=== PATIENT | male | born 1945 | race Caucasian/White ===

== ENCOUNTER → 2016-07-22 | Outpatient (CLI) | payer MEDICARE ==
[2016-07-22 13:48] LABS: PROTHROMBIN TIME 34.2 SEC (11.4-15.4)
== END ==
LOC: OD 12:31
PROVIDERS: ATTEND Internal Medicine
DX: I48.91 Unspecified atrial fibrillation (principal)
CPT/HCPCS: 36415; 85610

== ENCOUNTER → 2016-08-11 | Outpatient (CLI) | payer MEDICARE ==
[2016-08-11 12:11] LABS: PROTHROMBIN TIME 22.3 SEC (11.4-15.4)
== END ==
LOC: OD 11:35
PROVIDERS: ATTEND Internal Medicine
DX: I48.91 Unspecified atrial fibrillation (principal)
CPT/HCPCS: 36415; 85610

== ENCOUNTER → 2016-08-26 | Outpatient (CLI) | payer MEDICARE ==
[2016-08-26 14:07] LABS: PROTHROMBIN TIME 55.4 SEC (11.4-15.4)
== END ==
LOC: OD 11:01
PROVIDERS: ATTEND Family Medicine Geriatric Medicine
DX: E05.90 Thyrotoxicosis, unspecified without thyrotoxic crisis or storm (principal); I48.91 Unspecified atrial fibrillation
CPT/HCPCS: 36415; 84443; 85610

== ENCOUNTER → 2016-08-29 | Outpatient (CLI) | payer MEDICARE ==
[2016-08-29 11:25] LABS: PROTHROMBIN TIME 23.9 SEC (11.4-15.4)
== END ==
LOC: OD 10:04
PROVIDERS: ATTEND Internal Medicine
DX: I48.91 Unspecified atrial fibrillation (principal)
CPT/HCPCS: 36415; 85610

== ENCOUNTER → 2016-10-06 | Outpatient (CLI) | payer MEDICARE ==
[2016-10-06 15:36] LABS: PROTHROMBIN TIME 18.9 SEC (11.4-15.4)
== END ==
LOC: OD 14:29
PROVIDERS: ATTEND Family Medicine Geriatric Medicine
DX: I48.91 Unspecified atrial fibrillation (principal); Z79.01 Long term (current) use of anticoagulants; I10 Essential (primary) hypertension
CPT/HCPCS: 36415; 85610

== ENCOUNTER → 2016-10-17 | Outpatient (CLI) | payer MEDICARE ==
[2016-10-17 14:18] LABS: PROTHROMBIN TIME 26.7 SEC (11.4-15.4)
== END ==
LOC: OD 13:35
PROVIDERS: ATTEND Internal Medicine
DX: I48.91 Unspecified atrial fibrillation (principal)
CPT/HCPCS: 36415; 85610